=== PATIENT | male | born 1960 | race Hispanic/Latino ===

== ENCOUNTER 2025-05-23 22:05 | Emergency (ER) | payer SELFPAY ==
[~2025-05-23] VITALS: Ht 154.9 cm; Wt 79.8 kg
--- NOTE | 2025-05-23 22:34 | EKG ---
[facility] Test Date: 2025-05-23 Test Time: 22:28:34 Pat Name: FREDO CAMPO Department: [facility] Room: Gender: M Technical Manager: [id number] : 1960 Requested By: RED BREWER Order Number: [id number] Reading MD: Trista Ng Measurements Intervals [place] Rate: 70 P: 57 [place]: 165 QRS: -14 QRSD: 83 T: 71 QT: 365 QTc: 394 Interpretive Statements Sinus rhythm No previous ECG available for comparison Electronically Signed On 05-24-2025 16:11:36 CDT by Trista Ng Please click the below link to view image of tracing.
[2025-05-23 22:42] LABS: IMMATURE GRANULOCYTE ABSOLUTE 0.01 K/uL (0-1); NUCLEATED RED BLOOD CELLS 0.0 % (0.0-0.19); PLATELET COUNT (AUTO) 150 K/uL (130-400); RED BLOOD CELL COUNT(AUTO) 4.53 MIL/uL (4.50-6.20); RED CELL DISTRIBUTION WIDTH 12.6 % (11.0-15.5); WHITE BLOOD COUNT (AUTO) 6.6 K/uL (4.8-10.8)
[2025-05-23 22:49] LABS: CREATININE 0.8 mg/dL (0.5-1.3); GLOMERULAR FILTR. RATE CALC 100.0 mL/min (>90); GLUCOSE,RANDOM 240.0 mg/dL (70-105); SODIUM SERUM 141.0 mmol/L (136-145); UREA NITROGEN, BLOOD 13.0 mg/dL (7-18)
[2025-05-23 22:57] LABS: CREATINE KINASE, TOTAL 42.0 U/L (21-232)
--- NOTE | 2025-05-24 00:17 | ERN ---
ED Note History of Present Illness Stated Complaint: C/O HIGH B/P WITH HEADACHE Chief Complaint: Hypertension Time Seen by MD: 22:20 Dictation: This is a 64-year-old male who presented to the emergency room complaining of headache and his blood pressure being high. He denied any blurred vision diplopia slurred speech facial asymmetry. He also denied any motor weakness or seizure activity. No history of any chest pain pressure palpitations. He stated that he has not taken any of his blood pressure medications. All these symptoms started today few hours ago. He developed a slight headache diffusely which prompted him to check his blood pressure No nausea vomitings. Temperature 98.8 pulse 67 respirations 20 blood pressure 161/73 with a pulse oximetry of 98% on room air Allergies: Coded Allergies: No Known Allergies (Unverified Allergy, Unknown, 05/23/25) Past Medical History Past Medical History: Hypertension Surgical History: None Family History: Negative RN Note Reviewed/Agreed w/PFSH: Yes Review of System Dictation Constitutional: Negative for fever,chills, and weight loss positive for increased blood pressure Eyes: Negative for injury, pain,redness, and discharge ENT: Negative for injury,pain or swelling Cardiovascular: Negative for chest pain, palpitations, and edema Respiratory: Negative for shortness of breath, cough, and wheezing, Abdomen/GI: Negative for abdominal pain, nausea, vomiting, diarrhea, and constipation Back: Negative for injury and pain : Negative for injury, bleeding and discharge MS/Extremity: Negative for injury and deformity Skin: Negative for rash, and discoloration Neuro: Positive for headache, denied weakness, numbness, tingling, and seizure Psych: Negative for suicide ideation, homicidal ideation, and hallucinations Initial Vital Sign VS Vital Signs Date Time Temp Pulse Resp B/P (MAP) Pulse Ox O2 Delivery O2 Flow Rate FiO2 05/23/25 22:08 98.8 67 20 161/73 98 Room Air 05/24/25 00:34 0 21 Physical Exam Dictation General: awake, alert, NAD Head/Face: Normocephalic, atraumatic Eyes: PERRL, EOMI, vision at baseline ENT: oral cavity clear, TMs clear, no signs of infection Neck: Trachea midline, supple, no nuchal rigidity Cardiovascular: RRR, normal S1/S2, No MRGs, no JVD Respiratory: CTAB, no respiratory distress, No rales or wheezes Abdomen: Soft, non-tender, non-distended, normal bowel sounds, no guarding or rebound. Skin: Warm, dry, normal turgor, no rash MS/Extremity: Pulses equal, no cyanosis, neurovascular intact, FROM Neuro: COAx4, GCS 15, strength 5/5, CN 2-12 intact, normal cerebellar exam, normal gait, Psych: Normal behavior, mood, and affect normal Extremities-trace edema without any palpable cords, Homans sign is negative Results (Laboratory/Radiology) Laboratory/Radiology Laboratory Tests Test 05/23/25 22:30 05/24/25 00:56 White Blood Count 6.6 K/uL (4.8-10.8) Red Blood Count 4.53 MIL/uL (4.50-6.20) Hemoglobin 14.4 g/dL (14.0-18.0) Hematocrit 39.4 % (42-54) L Mean Corpuscular Volume 87.0 fL (79-99) Mean Corpuscular Hemoglobin 31.8 pg (27.0-33.0) Mean Corpuscular Hemoglobin Concent 36.5 g/dL (32.0-36.0) H Red Cell Distribution Width 12.6 % (11.0-15.5) Platelet Count 150 K/uL (130-400) Mean Platelet Volume 12.8 fL (7.5-10.5) H Immature Granulocyte % (Auto) 0.2 % (0-1) Neutrophils (%) (Auto) 54.4 % (40.0-77.0) Lymphocytes (%) (Auto) 34.3 % (21.0-51.0) Monocytes (%) (Auto) 8.5 % (3.0-13.0) Eosinophils (%) (Auto) 2.3 % (0.0-8.0) Basophils (%) (Auto) 0.3 % (0.0-5.0) Neutrophils # (Auto) 3.6 K/uL (1.8-7.7) Lymphocytes # (Auto) 2.3 K/uL (1.0-4.8) Monocytes # (Auto) 0.6 K/uL (0.1-1.0) Eosinophils # (Auto) 0.15 K/uL (0.00-0.70) Basophils # (Auto) 0.02 K/uL (0.00-0.20) Absolute Immature Granulocyte (auto 0.01 K/uL (0-1) Nucleated Red Blood Cells 0.0 % (0.0-0.19) Red Blood Cell Morphology See comments Sodium Level 141 mmol/L (136-145) Potassium Level 3.5 mmol/L (3.5-5.1) Chloride Level 106 mmol/L (101-111) Carbon Dioxide Level 26 mmol/L (21-32) Blood Urea Nitrogen 13 mg/dL (7-18) Creatinine 0.8 mg/dL (0.5-1.3) Glomerular Filtration Rate Calc 100 mL/min (>90) Random Glucose 240 mg/dL (70-105) H Total Calcium 8.6 mg/dL (8.5-10.1) Total Creatine Kinase 42 U/L (21-232) Troponin I High Sensitivity 4.4 ng/L (4-75) Urine Color YELLOW (YELLOW) Urine Appearance CLEAR (CLEAR) Urine pH 5.5 (5.0-8.0) Urine Specific Boykin 1.029 (1.001-1.031) Urine Protein NEGATIVE mg/dL (NEGATIVE) Urine Glucose (UA) >=1000 mg/dL (NEGATIVE) H Urine Ketones NEGATIVE mg/dL (NEGATIVE) Urine Occult Blood NEGATIVE (NEGATIVE) Urine Nitrate NEGATIVE (NEGATIVE) Urine Bilirubin NEGATIVE mg/dL (NEGATIVE) Urine Urobilinogen 2.0 mg/dL (0.2-1.0) H Urine Leukocyte Esterase NEGATIVE Angelica/uL Urine RBC 0-1 /HPF (0-1) Urine WBC 0-1 /HPF (0-1) Urine Squamous Epithelial Cells RARE /HPF (0-2) Urine Bacteria RARE /HPF (None Seen) Labs Reviewed?: Yes ED Course ED Course Orders Procedure Category Date Status Time Cardiac Panel LAB 05/23/25 Complete 22:23 Cbc With Differential LAB 05/23/25 Complete 22:23 Basic Metabolic Panel LAB 05/23/25 Complete 22:23 Urinalysis Profile LAB 05/23/25 Complete 22:23 12 Lead Ekg Tracing- EKG 05/23/25 Resulted Technical 22:23 Ketorolac PHA 05/24/25 Complete Tromethamine 30mg/Ml 00:30 Current Medications Medications (Trade) Dose Ordered Sig/Ramon Route PRN Reason Start Time Stop Time Status Last Admin Dose Admin Ketorolac Tromethamine (toRADol) 30 mg ONCE ONCE IM 05/24/25 00:30 05/24/25 00:31 DC 05/24/25 00:33 Vital Signs Date Time Temp Pulse Resp B/P (MAP) Pulse Ox O2 Delivery O2 Flow Rate FiO2 05/24/25 01:20 98.4 62 18 130/71 98 Room Air* 0 21 05/24/25 00:34 98.4 58 18 142/63 99 Room Air* 0 21 05/23/25 22:08 98.8 67 20 161/73 98 Room Air We will perform diagnostic labs, and administer medications according to the patient's complaint. Once the results are available, will review and personally interpreted the labs to rule out any acute life-threatening emergency the trach require immediate intervention and treatment. I will then re-evaluate the patient after treatment and diagnostic exams have return to determine whether the patient requires any further testing, can safely be discharged home or need further admission to hospital for additional treatment and evaluation. Medical Decision Making MDM Differential diagnosis: Uncontrolled hypertension, hypertensive urgency, diabetes mellitus with hyperglycemia, untreated hypertension This is a 64-year-old male who presented to the emergency room complaining of headache and his blood pressure being high. He denied any blurred vision diplopia slurred speech facial asymmetry. He also denied any motor weakness or seizure activity. No history of any chest pain pressure palpitations. He stated that he has not taken any of his blood pressure medications. Temperature 98.8 pulse 67 respirations 20 blood pressure 161/73 with a pulse oximetry of 98% on room air I reviewed the labs-CBC with a normal limits. BNP 7 shows a potassium of 3.5 and a glucose of 240. Troponins are negative. Urinalysis shows glycosuria. I had a very long discussion with the patient and his spouse about routine health maintenance and optimal management of his chronic comorbidities including hypertension and hyperglycemia. I went over all the labs and recommended that he should get established with a primary care and have blood pressure monitored and be evaluated for diabetes. Answered all their questions. Treated symptomatically. Patient felt significantly improved Rationale: Tests considered and ordered secondary to shared decision making include: Previous outside records reviewed: Old ER visits. Risk of complication and/or morbidity or mortality of patient management: None Medications-Per medication reconciliation Need for hospitalization: Patient does not meet criteria for hospitalization. Need for emergency major/minor surgery: No There are no social concerns with this patient. Prescription drug management Prescriptions will include symptomatic care Patient's prior external medical records from other ER visits were reviewed by me as indicated. Prior testing and results from previous visits were reviewed. Prior tests were taken into account with medical decision making and resource utilization, independent historian/historians were used to obtain complete m edical history. I independently interpreted the test that were performed, results were reviewed by me and considered findings on radiology if ordered. Medical management and examination interpretation discussions were had by me with other qualified healthcare professionals as indicated for the patient's care. Problem List Problem List: (1) Uncontrolled hypertension (2) Medical non-compliance (3) Headache (4) Hyperglycemia DX & DISP Disposition: Discharge Departure Impression: Primary Impression: Uncontrolled hypertension Additional Impressions: Medical non-compliance, Headache, Hyperglycemia Condition: Stable Additional Instructions: Patient and the caregiver have been informed of all the diagnostic tests and the imaging conducted during the today's visit to the emergency room and has verbalized understanding of the results I have personally reviewed and interpreted all diagnostic exams performed here in the ER today as well as the vital signs documented by the nursing staff. The patient is now being discharged to home and should follow up with the primary care physician or the specialist as directed by the ER staff. Follow-up with primary care provider in 1 to 2 days. Take medications as directed here in the emergency room. Okay to continue home medications unless otherwise discussed during your visit in the emergency room today. Return to your nearest emergency room if symptoms worsen or if there is no improvement. Call 911 if you need immediate assistance. Take Tylenol or Motrin [id number] as needed and if no contraindications are present. Increase oral hydration. A wound culture or urine culture was ordered here in the emergency room department please follow-up with primary care provider and advise them to get repeat ports from our facility. If you had any Augustine wrap/splints that were applied here, please do not remove them until you see your primary care or specialty. Patient needs to get established with primary care to get hypertension and diabetes evaluated. Referrals: NONE (PCP) RED BREWER MD May 24, 2025 00:17
--- NOTE | 2025-05-24 00:24 | NUR ---
ASSUMED PT CARE
[2025-05-24 01:06] LABS: ADD UA MICROSCOPIC YES; APPEARANCE,URINE CLEAR (CLEAR); GLUCOSE, URINE (UA) >=1000 mg/dL (NEGATIVE); LEUKOCYTE ESTERASE ,URINE NEGATIVE Leu/uL (NEGATIVE); NITRATE,URINE NEGATIVE (NEGATIVE); OCCULT BLOOD,URINE NEGATIVE (NEGATIVE)
[2025-05-24 01:07] LABS: SQUAMOUS EPITHELIAL CELL,UR RARE /HPF (0-2)
[2025-05-24 01:20] VITALS: BP 130/71; PULSE 62; RESP 18; TEMP 98.5; O2SAT 98
== END 2025-05-24 01:23 | disposition home or self-care (01) ==
LOC: EDH 22:05
DX: I10 Essential (primary) hypertension (principal); R73.9 Hyperglycemia, unspecified; Z91.199 Patient's noncompliance with other medical treatment and regimen due to unspecified reason; R51.9 Headache, unspecified
CPT/HCPCS: 99284; 82550; 84484; 80048; 85025; 81001; 36415; 93005; 96372; J1885